=== PATIENT | female | born 1990 | race Two or more races ===

== ENCOUNTER → 2024-12-24 09:52 | Outpatient (REF) | payer OTHER, SELFPAY | LOC: PNTC 09:52 | PROVIDERS: ATTENDING PHYSICIAN Student in an Organized Health Care Education/Training Program | DX: Z34.82 Encounter for supervision of other normal pregnancy, second trimester (principal) | CPT/HCPCS: 76811; 76817 ==

== ENCOUNTER → 2025-01-08 10:37 | Outpatient (REF) | payer OTHER, SELFPAY | LOC: PNTC 10:37 | PROVIDERS: ATTENDING PHYSICIAN Student in an Organized Health Care Education/Training Program | DX: Z34.02 Encounter for supervision of normal first pregnancy, second trimester (principal) | CPT/HCPCS: 36415; 86850; 86900; 86901; 96372; J2790 ==

== ENCOUNTER → 2025-02-04 11:33 | Outpatient (REF) | payer OTHER, SELFPAY | LOC: PNTC 11:33 | PROVIDERS: ATTENDING PHYSICIAN Student in an Organized Health Care Education/Training Program | DX: O09.529 Supervision of elderly multigravida, unspecified trimester (principal) | CPT/HCPCS: 76816 ==

== ENCOUNTER 2025-02-18 13:29 | Outpatient (RCR) | payer OTHER, SELFPAY | END 2025-02-18 23:59 | disposition home or self-care (01) | LOC: RPT 13:29 | PROVIDERS: ATTENDING PHYSICIAN Obstetrics & Gynecology; FAMILY PHYSICIAN Family Medicine | DX: O26.713 Subluxation of symphysis (pubis) in pregnancy, third trimester (principal); M84.859 Other disorders of continuity of bone, unspecified pelvic region and thigh; Z73.6 Limitation of activities due to disability; M25.551 Pain in right hip; M54.50 Low back pain, unspecified; R26.89 Other abnormalities of gait and mobility | CPT/HCPCS: 97110; 97163; 97530 ==

== ENCOUNTER → 2025-03-07 13:34 | Outpatient (REF) | payer OTHER, SELFPAY | LOC: PNTC 13:34 | PROVIDERS: ATTENDING PHYSICIAN Obstetrics & Gynecology | DX: O09.529 Supervision of elderly multigravida, unspecified trimester (principal) | CPT/HCPCS: 76816 ==

== ENCOUNTER → 2025-03-19 12:22 | Outpatient (REF) | payer OTHER, SELFPAY | LOC: PNTC 12:22 | PROVIDERS: ATTENDING PHYSICIAN Obstetrics & Gynecology | DX: O36.8190 Decreased fetal movements, unspecified trimester, not applicable or unspecified (principal) | CPT/HCPCS: 59025; 76815 ==

== ENCOUNTER 2025-03-26 19:42 | Inpatient (IN) | payer OTHER, SELFPAY ==
[2025-03-26 20:03] VITALS: BP 111/75; BMI 28.1
[2025-03-26 20:42] LABS: % Basophils 0.3 % (0-2); % Eosinophils 0.8 % (0-6); % Immature Granulocytes 0.7 % (0-0.5); % Lymphocytes 24.4 % (20.5-51.1); % Monocytes 6.5 % (1.7-9.3); % Neutrophils 67.3 % (42.2-75.2); Absolute Eosinophils 0.1 10^3/uL (0-0.7); Absolute Immature Granulocytes 0.1 10^3/uL (0-0.05); Absolute Lymphocytes 2.3 10^3/uL (1.2-3.4); Absolute Monocytes 0.6 10^3/uL (0.1-0.6); Absolute Neutrophils 6.4 10^3/uL (1.4-6.5); Hematocrit 35.2 % (37.0-47.0); Hemoglobin 12.6 g/dL (12.0-16.0); Mean Corp Hgb Conc. 35.8 g/dL (33.0-37.0); Mean Corpuscular Hgb 33.7 pg (27.0-31.0); Mean Corpuscular Volume 94.1 fL (81.0-99.0); Mean Platelet Volume 10.3 fL (7.4-10.4); Nucleated Red Blood Cells % 0 %; Platelet Count 235 10^3/uL (130-400); Red Blood Cell Count 3.74 10^6/uL (4.20-5.40); Red Cell Dist. Width 12.1 % (11.5-14.5); White Blood Cell Count 9.5 10^3/uL (4.8-10.8)
[2025-03-26] MEDS: CYTOTEC 25 MICROGRAM VAG (20:47)
[2025-03-26] MEDS: ATARAX 50 MG PO (21:45)
[2025-03-26 21:59] LABS: HIV Combo Negative (Negative)
[2025-03-27] MEDS: CYTOTEC 50 MICROGRAM PO (01:27)
[2025-03-27] MEDS: LR 1000 IV ×2 (02:03→05:01)
[2025-03-27] MEDS: FENTANYL/BUPIVACAINE 100 EPIDURAL (02:48)
[2025-03-27] MEDS: SUBLIMAZE 100 MCG EPIDURAL (02:48)
--- NOTE | 2025-03-27 04:20 | DOWNTIME ---
Addendum entered and electronically signed by Jhonny Luke RN 03/27/25 14:05:
Correction: Downtime was 03/27/2025 from 0100 to 03/27/2025 at 0415
Original Note:
There was a [employer] Downtime on 03/26/2025 from 0100 to 03/27/2025 at 0415. Downtime documentation of patient's care, including medication administrations, has been reconciled in the electronic record per guidelines. Refer to the
patient's paper chart under the miscellaneous tab to see printed paper medication records and downtime forms.
[2025-03-27] MEDS: CYTOTEC PO (05:10)
[2025-03-27] MEDS: PITOCIN 30 UNITS/NSS 500 ML IV (08:27)
[2025-03-27] MEDS: METHERGINE INJECTION 0.2 MG IM (10:15)
--- NOTE | 2025-03-27 15:15 | CM ---
CM reviewed chart, received consult for breast pump. Mother seen bedside, mostly Sw[place] speaking, able to speak with CM. Mothers daughter bedside, congratulated on of daughter, name of daughter- Demar. Mother confirms address and contact
number, asked if mother wanted to provide fathers contact information, mother declined. Mother confirmed has all supplies for child at home. Mother agreeable to Spectra 2 breast pump, will fax to [employer].
Plan; home with child
[2025-03-27] MEDS: MOTRIN 600 MG PO ×2 (15:36→21:38)
[2025-03-27] MEDS: TYLENOL 650 MG PO ×2 (15:36→21:38)
[2025-03-28 04:29] LABS: Hematocrit 33.2 % (37.0-47.0); Hemoglobin 11.7 g/dL (12.0-16.0)
[2025-03-28] MEDS: MOTRIN 600 MG PO ×2 (09:14→15:53)
[2025-03-28] MEDS: SENOKOT-S 1 TABLET PO (09:46)
[2025-03-28] MEDS: PRENATAL PLUS 1 TABLET PO (09:46)
[2025-03-28] MEDS: TUMS CHEWABLE TABLET 400 MG PO (09:48)
[2025-03-28] MEDS: TYLENOL 650 MG PO ×2 (10:07→15:53)
[2025-03-28] MEDS: RHOGAM 300 MCG IM (17:49)
[2025-03-29] MEDS: TYLENOL 650 MG PO ×2 (00:24→08:39)
[2025-03-29] MEDS: MOTRIN 600 MG PO ×2 (00:25→08:39)
[2025-03-29] MEDS: PRENATAL PLUS 1 TABLET PO (08:01)
[2025-03-29 14:00] LABS: Syphilis/T. pallidum Ab Reflex Negative (Negative)
== END 2025-03-29 14:00 | disposition home or self-care (01) | DRG 807 ==
LOC: LDRP 19:42
PROVIDERS: Obstetrics & Gynecology; ADMITTING PHYSICIAN Student in an Organized Health Care Education/Training Program; FAMILY PHYSICIAN Student in an Organized Health Care Education/Training Program
PROC: 10E0XZZ Delivery of Products of Conception, External Approach (ICD-10-PCS; 2025-03-27)
PROC: 3E0P7VZ Introduction of Hormone into Female Reproductive, Via Natural or Artificial Opening (ICD-10-PCS; 2025-03-27)
PROC: 3E0334Z Introduction of Serum, Toxoid and Vaccine into Peripheral Vein, Percutaneous Approach (ICD-10-PCS; 2025-03-28)
DX: O26.893 Other specified pregnancy related conditions, third trimester (principal); Z37.0 Single live birth; O69.81X0 Labor and delivery complicated by cord around neck, without compression, not applicable or unspecified; Z3A.39 39 weeks gestation of pregnancy; Z67.21 Type B blood, Rh negative
CPT/HCPCS: 85014; 85018; 85025; 85461; 86780; 86850; 86900; 86901; 87389; J2790